=== PATIENT | male | born 1980 | race Caucasian/White ===

== ENCOUNTER → 2016-08-26 | Outpatient (CLI) | payer OTHER ==
[~2016-08-26] MED LIST: FLOMAX0.4 M1 PO; KENALOG IN ORABA5 GM TOP; LIBRIUM PO; LIBRIUM25 M1 PO; LIBRIUM25 MG PO; METHADONE PO; NO MEDICATIONS; PHENERGAN25 M1 PO; TORADOL10 MG PO; ZUBSOLV 5.7-1.1 EACH SL
--- NOTE | ~2016-08-26 | TM ---
[id number] NAME: ADIEL CLARK MR#: [id number] EXAM Regular Treadmill Stress Test DESCRIPTION Baseline EKG shows normal sinus rhythm. No significant ST-T wave changes. Resting heart rate is 55, resting blood pressure is 111/73 mmHg. PROCEDURE The patient was made to exercise on a standard Km protocol. Total exercise time is 9 minutes 38 seconds completing stage 3 of a standard Km protocol. Test stopped because target heart rate achieved. No complaints of chest pain or extreme shortness of breath. Maximal heart rate obtained is 183 which is 98% of maximal predicted heart rate. Maximal blood pressure obtained is 165/[address]-T wave changes suggestive of ischemia. No arrhythmias noted. CONCLUSION 1. Good exercise tolerance. 2. There is no clinical, hemodynamic or EKG evidence of ischemia at good workload (98% of maximal predicted heart rate, 10.1 METs). 3. Normal heart rate and blood pressure response. 4. Normal regular treadmill stress test. Dictated by...
== END | disposition home or self-care (01) ==
LOC: CEKG 07:12
DX: R07.89 Other chest pain (principal)
CPT/HCPCS: 93017